=== PATIENT | male | born 1955 | race Two or more races ===

== ENCOUNTER 2022-09-06 11:03 | Inpatient (IN) | payer OTHER ==
[~2022-09-06] VITALS: Ht 167.6 cm; Wt 99.8 kg
--- NOTE | 2022-09-06 11:45 | NUR ---
PACIENTE ALERTA Y ORIENTADO X 3. REFIERE DOLOR EN BRAZOS Y PIERNAS DESDE LA MANANA. PACIENTE CON DRENAJE A CAUSA DSE LYNETTE FISTULA QUE NO CERRO HACEN 3ANOS REFIERE TENER QUE ESTAR VACIANDO LA BOLSA CADA 1 HR.
--- NOTE | 2022-09-06 14:20 | NUR ---
SE RECIBE PTE MASCULINO DE 67 YRS ALERTA CONCIENTE Y TRANQUILO EN COMPANIA DE FAMILAIR.,PTE ES EVALUADO POR EL QUEIN ORDENA TRATAMIENTO LA CUAL SE EJECUTA POR MS.FERNANDA RN SE MANTIENE BAJO OBSERVACION
--- NOTE | 2022-09-06 17:51 | NUR ---
SE EDUCA A PTE SOBRE TX MEDICO ROLLY REFIERE ENTENDER. SE COLOCAN MEDICAMENTOS LOS CUALES TOLERA .
[2022-09-08] MEDS ORDERED: LOPERAMIDE2 MG (09:02)
[2022-09-08] MEDS ORDERED: CLONAZEPAM1 MG (09:02)
[2022-09-08] MEDS ORDERED: LOSARTAN POTASS25 MG (09:02)
[2022-09-08] MEDS ORDERED: LACTOBACILLUS1 EACH (09:02)
[2022-09-08] MEDS ORDERED: ATORVASTATIN CA40 MG (09:02)
[2022-09-08] MEDS ORDERED: ZOLPIDEM TARTRA10 MG (09:03)
[2022-09-08] MEDS ORDERED: METFORMIN HCL500 M4 (09:03)
[2022-09-08] MEDS ORDERED: PAROXETINE HCL40 MG (09:03)
== END 2022-09-10 21:05 | disposition home or self-care (01) | DRG 641 ==
LOC: ER 11:03 → MEDI 23:16
PROVIDERS: ADMIT Internal Medicine; ATTEND Internal Medicine
PROC: BW21YZZ Computerized Tomography (CT Scan) of Abdomen and Pelvis using Other Contrast (ICD-10-PCS; principal; 2022-09-06)
PROC: BT43ZZZ Ultrasonography of Bilateral Kidneys (ICD-10-PCS; 2022-09-06)
DX: E87.1 Hypo-osmolality and hyponatremia (principal); N17.9 Acute kidney failure, unspecified; E87.5 Hyperkalemia; E11.65 Type 2 diabetes mellitus with hyperglycemia; Z79.4 Long term (current) use of insulin; I25.10 Atherosclerotic heart disease of native coronary artery without angina pectoris; I15.8 Other secondary hypertension

== ENCOUNTER 2022-09-19 17:25 | Inpatient (IN) | payer OTHER ==
[~2022-09-19] VITALS: Ht 167.6 cm; Wt 99.8 kg
[~2022-09-19 17:25] MED LIST: ATORVASTATIN CA40 MG; CLONAZEPAM1 MG; LACTOBACILLUS1 EACH; LOPERAMIDE2 MG; LOSARTAN POTASS25 MG; METFORMIN HCL500 M4; PAROXETINE HCL40 MG; ZOLPIDEM TARTRA10 MG
== END 2022-09-25 12:16 | disposition home or self-care (01) | DRG 683 ==
LOC: ER 17:25 → MEDJ 22:52
PROVIDERS: ADMIT Internal Medicine; ATTEND Internal Medicine
PROC: 4A12X4Z Monitoring of Cardiac Electrical Activity, External Approach (ICD-10-PCS; principal; 2022-09-20)
DX: N17.9 Acute kidney failure, unspecified (principal); E87.1 Hypo-osmolality and hyponatremia; K63.2 Fistula of intestine; E86.0 Dehydration; E87.5 Hyperkalemia; I12.9 Hypertensive chronic kidney disease with stage 1 through stage 4 chronic kidney disease, or unspecified chronic kidney disease; E11.22 Type 2 diabetes mellitus with diabetic chronic kidney disease; N18.9 Chronic kidney disease, unspecified; Z79.4 Long term (current) use of insulin